=== PATIENT | female | born 1945 | race Caucasian/White ===

== ENCOUNTER → 2018-07-02 | Outpatient (CLI) | payer MEDICARE, MEDICAID ==
[~2018-07-02] MED LIST: ALBU8.5H IH; ASPI-764 PO; CYCL10TA29 PO; DUL100/5PT INH; FURO20TA19 PO; LEVO25TA61 PO; LISI-346 PO; METROPOLOL; OXYC5CAP21 PO; POTA99TA10; PREVASTATIN
== END ==
LOC: US 00:25
PROVIDERS: ATTEND Internal Medicine Cardiovascular Disease
DX: I51.7 Cardiomegaly (principal); I34.0 Nonrheumatic mitral (valve) insufficiency; I99.9 Unspecified disorder of circulatory system; I50.30 Unspecified diastolic (congestive) heart failure
CPT/HCPCS: 36415; 83880; 85027; 93306

== ENCOUNTER → 2018-11-18 | Outpatient (CLI) | payer MEDICARE, MEDICAID ==
[~2018-11-18] MED LIST changes: +CHOL200078; +DULERAPT INH; +LEVO-3 PO; +METO25TA93 PO; +MULT1CAP59 PO
== END ==
LOC: AUD 10:00
PROVIDERS: ATTEND Specialist
DX: R42 Dizziness and giddiness (principal); H93.13 Tinnitus, bilateral
CPT/HCPCS: 92557; 92570